=== PATIENT | male | born 1990 | race Caucasian/White ===

== ENCOUNTER 2023-01-08 20:52 | Emergency (ER) | payer SELFPAY ==
[2023-01-08] MEDS ORDERED: Lidocaine 2% Viscous Solution 15 ML UD PO ONE (21:24)
[2023-01-08] MEDS ORDERED: Benzocaine 20% Topical Spray UD MUCMEM ONE (21:24)
[2023-01-08] MEDS ORDERED: Acetaminophen/HYDROcodone 325-5 MG Tab PO ONE (21:27)
[2023-01-08] MEDS ORDERED: Amoxicillin/Clavulanate K 875-125 MG Tab PO ONE (21:27)
== END 2023-01-08 21:43 | disposition home or self-care (01) ==
LOC: MW.ED 20:52
DX: K04.7 Periapical abscess without sinus (principal)
CPT/HCPCS: 99282; A9270; 99283